=== PATIENT | female | born 1940 ===

== ENCOUNTER → 2020-03-20 | Day surgery (SDC) | payer OTHER ==
[~2020-03-20] MED LIST: GABAPENTIN300 M2; MACROBID 100 M100 MG PO; METFORMIN HCL500 M3 PO; SINGULAIR10 MG PO; ULTRACET PO
== END | disposition home or self-care (01) ==
LOC: ADM 03-14 08:15 → CIR.AMB 05:45 → ADM 08:15 → CIR.AMB 08:15
PROVIDERS: ATTEND Obstetrics & Gynecology Gynecology
DX: N81.6 Rectocele (principal); N81.5 Vaginal enterocele